=== PATIENT | female | born 1995 ===

== ENCOUNTER 2020-09-07 19:33 | Emergency (ER) | payer SELFPAY ==
[~2020-09-07] VITALS: Ht 157.5 cm; Wt 55.9 kg
[2020-09-07 19:39] VITALS: Ht 157.5 cm; Wt 55.9 kg
[2020-09-07] MEDS ORDERED: PREDNISONE20 MG PO (20:46)
[2020-09-07 21:04] VITALS: BP 147/105
== END 2020-09-07 21:14 | disposition home or self-care (01) ==
LOC: D.ER 19:33
DX: T78.40XA Allergy, unspecified, initial encounter (principal)